=== PATIENT | male | born 1950 | race Caucasian/White ===

== ENCOUNTER 2020-03-17 00:41 | Outpatient (CLI) | payer MEDICARE, BC, SELFPAY ==
--- NOTE | 2020-03-17 15:00 | DI.CTLCSR_ITS ---
EXAM: CT CHEST LUNG CANCER SCREEN CLINICAL HISTORY: FORMER SMOKER, Z87.891, SCREENING FOR LUNG CA TECHNIQUE: COMPARISON: No exams were available for comparison FINDINGS: CT examination of the chest was performed utilizing noncontrast low-dose lung cancer screening protoc ol. Images obtained through the upper abdomen show unremarkable appearance of visualized portions li melodie, spleen, pancreas, adrenals, kidneys. No mediastinal or hilar adenopathy. Tracheobronchial tree appears intact. No pleural effusion seen. There is a 4 millimeter smooth noncalcified intrapulmonary nodule in the right middle lobe laterally. No additional nodule is seen in either lung. IMPRESSION: 4 millimeter noncalcified intrapulmonary nodule, follow-up LDCT recommended in 12 months. Lung RADS Cat 2 - Benign Appearance / Behavior: Nodules with a very low likelihood of becoming a clin ically active cancer due to size or lack of growth RADIATION DOSE DELIVERED: 85.37mGy.cm Total DLP
== END 2020-03-17 01:01 ==
PROVIDERS: Visit Provider Nurse Practitioner
DX: Z12.2 Encounter for screening for malignant neoplasm of respiratory organs (principal); Z87.891 Personal history of nicotine dependence; R91.1 Solitary pulmonary nodule
CPT/HCPCS: G0297